=== PATIENT | female | born 1950 | race Caucasian/White ===

== ENCOUNTER 2017-12-19 14:09 | Emergency (ER) | payer OTHER ==
[~2017-12-19] VITALS: Ht 160 cm; Wt 73.5 kg
[2017-12-19] MEDS ORDERED: SIMVASTATIN10 MG (14:17)
[2017-12-19] MEDS ORDERED: NEURONTIN300 MG (15:57)
== END 2017-12-19 18:18 | disposition home or self-care (01) ==
LOC: ER 14:09
DX: R10.31 Right lower quadrant pain (principal)